=== PATIENT | female | born 1990 | race Caucasian/White ===

== ENCOUNTER 2022-09-30 16:15 | Inpatient (IN) | payer BC ==
[~2022-09-30] VITALS: Ht 157.5 cm; Wt 83.0 kg
[2022-09-30] MEDS ORDERED: CEFAZOLIN 2 GM IVPB PREMIX 50 ML IV ONE (17:00)
[2022-09-30] MEDS ORDERED: LR 1,000 ML IV SCH ×2 (17:00→20:00)
[2022-09-30] MEDS ORDERED: NACL 0.9% 1,000 ML IV SCH (17:30)
[2022-09-30 17:49] LABS: BASOPHILS % (AUTO) 0.4 % (0.0-2.0); EOSINOPHILS % (AUTO) 0.1 % (0.0-4.0); HEMATOCRIT 33.7 % (36-48); HEMOGLOBIN 11.3 g/dL (12.0-16.0); LYMPHOCYTES # (AUTO) 1.5 K/uL (1.0-5.5); LYMPHOCYTES % (AUTO) 16.6 % (20.5-51.5); MEAN CORPUSCULAR HEMOGLOBIN 28 pg (27-31); MEAN CORPUSCULAR HGB CONC 34 % (32-36); MEAN CORPUSCULAR VOLUME 84 fL (79.0-98.0); MONOCYTES # (AUTO) 0.6 K/uL (0.0-1.0); MONOCYTES % (AUTO) 6.1 % (1.7-9.3); NEUTROPHILS # (AUTO) 6.9 K/uL (1.8-7.7); NEUTROPHILS % (AUTO) 76.8 % (40.0-70.0); PLATELET COUNT (AUTO) 278 K/uL (130-430); RED BLOOD CELL COUNT(AUTO) 4.03 MIL/uL (4.2-6.2)
[2022-09-30 17:52] LABS: BILIRUBIN,URINE NEGATIVE (NEGATIVE); BLOOD, URINE NEGATIVE (NEGATIVE); CLARITY/URINE CLEAR (CLEAR); COLOR,URINE YELLOW (YELLOW); GLUCOSE,URINE NEGATIVE (NEGATIVE); KETONES,URINE 3+ (NEGATIVE); LEUKOCYTE ESTERASE ,URINE NEGATIVE (NEGATIVE); NITRITE, URINE NEGATIVE (NEGATIVE); PH,URINE 5.5 (5.0-8.0); PROTEIN URINE NEGATIVE (NEGATIVE); UROBILINOGEN,URINE 0.2 (0.2-1.0)
[2022-09-30 18:24] LABS: BACTERIA,URINE MODERATE /HPF (None Seen); WBC,URINE 0-3 /HPF (0-3)
[2022-09-30 18:25] LABS: MUCUS,URINE 2+ /LPF (None Seen)
[2022-09-30] MEDS ORDERED: NS IRRIG SOLN 1000 ML IR ONE (18:30)
[2022-09-30] MEDS ORDERED: METOCLOPRAMIDE HCL 10 MG/2 ML VIAL ONE (18:30)
[2022-09-30] MEDS ORDERED: LR 1,000 ML IV.SOLN IV ONE (18:30)
[2022-09-30] MEDS ORDERED: BUPIVACAINE /DEX PF 0.75% SPINAL 2 ML AMP INJ ONE (18:30)
[2022-09-30] MEDS ORDERED: OXYTOCIN 10 UNIT/ML VIAL ONE (18:30)
[2022-09-30] MEDS ORDERED: ONDANSETRON HCL 4 MG/2 ML VIAL ONE (18:30)
[2022-09-30] MEDS ORDERED: MORPHINE SULFATE 10MG/10ML PF AMP ONE (18:30)
[2022-09-30] MEDS ORDERED: RHO(D) IMMUNE GLOBULIN/MALTOSE 1500 UNITS/1.3 ML (WINHRO) IM PRN (19:45)
[2022-09-30] MEDS ORDERED: KETOROLAC TROMETHAMINE 60 MG/2 ML VIAL IM PRN (19:45)
[2022-09-30] MEDS ORDERED: HYDROcodone/ACETAMIN 5-325 MG TAB (NORCO/ VICODIN) PO PRN (19:45)
[2022-09-30] MEDS ORDERED: LANOLIN 7 GM OINT. TP PRN (19:45)
[2022-09-30] MEDS ORDERED: DIPHTH,PERTUSS(ACELL),TET VAC 0.5 ML VIAL (Tdap) I.M. PRN (19:45)
[2022-09-30] MEDS ORDERED: MORPHINE SULFATE 10MG/10ML PF AMP SP SCH (19:45)
[2022-09-30] MEDS ORDERED: MEASLES,MUMPS&RUBELLA VACC/PF 12500 UNIT/0.5 ML VIAL SUBQ PRN (19:45)
[2022-09-30] MEDS ORDERED: NALOXONE HCL 0.4 MG/ML AMP (NARCAN) IVP PRN ×2 (19:45)
[2022-09-30] MEDS ORDERED: OXYTOCIN/0.9 % SODIUM CHLORIDE 1,000 ML IV ONE (19:45)
[2022-09-30] MEDS ORDERED: ONDANSETRON HCL 4 MG/2 ML VIAL IVP PRN (19:45)
[2022-09-30] MEDS ORDERED: BISACODYL 10 MG/SUPPOSITORY RC PRN (19:45)
[2022-09-30] MEDS ORDERED: TEMAZEPAM 15 MG CAPSULE PO PRN (21:00)
[2022-10-01] MEDS: CEFAZOLIN 1 GM IVPB PREMIX 50 ML IV SCH ×2 (00:06→06:07)
[2022-10-01] MEDS: KETOROLAC TROMETHAMINE 30 MG VIAL IVP SCH ×4 (00:06→18:06)
[2022-10-01 02:18] VITALS: BP_SYST 121
[2022-10-01 06:54] LABS: BASOPHILS % (AUTO) 0.4 % (0.0-2.0); EOSINOPHILS % (AUTO) 0.4 % (0.0-4.0); HEMATOCRIT 30.8 % (36-48); HEMOGLOBIN 10.3 g/dL (12.0-16.0); LYMPHOCYTES # (AUTO) 1.5 K/uL (1.0-5.5); LYMPHOCYTES % (AUTO) 15.4 % (20.5-51.5); MEAN CORPUSCULAR HEMOGLOBIN 28 pg (27-31); MEAN CORPUSCULAR HGB CONC 34 % (32-36); MEAN CORPUSCULAR VOLUME 83 fL (79.0-98.0); MONOCYTES # (AUTO) 0.7 K/uL (0.0-1.0); MONOCYTES % (AUTO) 6.6 % (1.7-9.3); NEUTROPHILS # (AUTO) 7.6 K/uL (1.8-7.7); NEUTROPHILS % (AUTO) 77.2 % (40.0-70.0); PLATELET COUNT (AUTO) 247 K/uL (130-430); RED CELL DISTRIBUTION WIDTH 15.1 % (9.0-15.0); WHITE BLOOD COUNT (AUTO) 9.9 K/uL (4.8-10.8)
[2022-10-01] MEDS: SIMETHICONE 80 MG TAB.CHEW PO PRN ×2 (12:14→19:07)
[2022-10-01] MEDS: SENNOSIDES/DOCUSATE SODIUM 1 TAB TABLET(SENOKOT-S) PO SCH (20:32)
[2022-10-01] MEDS: DOCUSATE SODIUM 100 MG CAPSULE PO SCH (20:33)
[2022-10-01] MEDS: OXYCODONE/ACETAMINOPHEN 5-325 TABLET PO PRN (20:34)
[2022-10-02] MEDS: SIMETHICONE 80 MG TAB.CHEW PO PRN ×7 (00:07→21:34)
[2022-10-02] MEDS: IBUPROFEN 600 MG TABLET PO SCH ×4 (00:08→18:39)
[2022-10-02] MEDS: OXYCODONE/ACETAMINOPHEN 5-325 TABLET PO PRN ×7 (03:05→21:35)
[2022-10-02] MEDS: DOCUSATE SODIUM 100 MG CAPSULE PO SCH ×2 (09:30→21:34)
[2022-10-02] MEDS: SENNOSIDES/DOCUSATE SODIUM 1 TAB TABLET(SENOKOT-S) PO SCH (21:34)
[2022-10-03] MEDS: IBUPROFEN 600 MG TABLET PO SCH ×4 (00:32→18:33)
[2022-10-03] MEDS: OXYCODONE/ACETAMINOPHEN 5-325 TABLET PO PRN ×6 (03:35→18:35)
[2022-10-03] MEDS: SIMETHICONE 80 MG TAB.CHEW PO PRN ×3 (03:36→15:34)
[2022-10-03] MEDS ORDERED: BISACODYL 10 MG/SUPPOSITORY RC ONE ×2 (09:00→15:00)
[2022-10-03] MEDS: DOCUSATE SODIUM 100 MG CAPSULE PO SCH (09:39)
== END 2022-10-03 20:01 | disposition home or self-care (01) | DRG 787 ==
LOC: SPU 16:15
PROVIDERS: ADMIT Specialist; ATTEND Specialist
PROC: 10D00Z1 Extraction of Products of Conception, Low, Open Approach (ICD-10-PCS; principal; 2022-10-03)
DX: O32.1XX0 Maternal care for breech presentation, not applicable or unspecified (principal); O41.03X0 Oligohydramnios, third trimester, not applicable or unspecified; Z37.0 Single live birth; Z3A.38 38 weeks gestation of pregnancy; O62.9 Abnormality of forces of labor, unspecified; O36.8130 Decreased fetal movements, third trimester, not applicable or unspecified
CPT/HCPCS: 36415; 81000; 82947; 85025; 86592; 86886; 86900; 86901; 87086; 94760; J0690; J1885; J2274; J2405; J2590; J2765; J3490; J7120